=== PATIENT | male | born 1950 | race Asian ===

== ENCOUNTER 2018-10-05 22:43 | Inpatient (IN) | payer BC ==
[~2018-10-05] VITALS: Ht 160 cm; Wt 45.8 kg
[2018-10-05 22:55] VITALS: BP 122/74
--- NOTE | 2018-10-05 22:59 | NUR ---
RT NOTE RCVD A CALL FROM ER FOR DISLODGED TRACH. PT RCVD FROM FIRE DEPARTMENT VIA AMBU BAG. UPON ARRIVAL RT ASSESSMENT TRACH TUBE IN PLACE. DR SPANGLER AWARE AND BEDSIDE. PT PLACED ON MECHANICAL VENT SETTINGS NOTED FROM FIRE DEPARTMENT. SX'D FOR THICK SMALL AMOUNT OF BLOOD TINGED SECRETIONS. PT TOLERATING VENT SETTINGS WELL. ALARMS ARE ON AND AUDIBLE. VENT PLUGGED INTO RED OUTLET. AMBU BAG BEDSIDE. WILL CONTINUE TO MONITOR. Addendum: 10/05/18 at 2318 by ANDERSON CHUNG RT PT HAS BILATERAL CHEST RISE AND AUSCULTATE BILATERAL CLEAR BREATH SOUNDS.
--- NOTE | 2018-10-05 23:01 | NUR ---
[id number] FROM FAC FOR POSSIBLE TRACH DISLODGEMENT, LOW O2 SAT. BVM PER EMS. PT HAD DIALYSIS TODAY. RT AT BEDSIDE. PT HAS BILATERAL PITTING EDEMA ON FOREARMS. ALERT AND ABLE TO RESPOND WITH HEAD SHAKE/NOD GESTURES. APPEARS TO BE IN DISCOMFORT. ON MONITOR AND READY FOR EVAL.
--- NOTE | 2018-10-05 23:08 | NUR ---
[facility]: [phone]
[2018-10-05 23:09] LABS: BASOPHILS # (AUTO) 0.1 /CMM (0.0-0.2); BASOPHILS % (AUTO) 0.4 % (0.0-2.0); EOSINOPHILS % (AUTO) 0.1 % (0.0-6.0); HEMATOCRIT 37 % (39-51); HEMOGLOBIN 11.7 g/dL (13.5-17.5); LYMPHOCYTES # (AUTO) 0.3 /CMM (0.8-4.8); LYMPHOCYTES % (AUTO) 2.2 % (20.0-44.0); MEAN CORPUSCULAR HGB CONC 32 g/dl (31.0-36.0); MEAN CORPUSCULAR VOLUME 97 fL (80-96); MONOCYTES # (AUTO) 1.5 /CMM (0.1-1.30); NEUTROPHILS # (AUTO) 12.8 /CMM (1.8-8.9); NEUTROPHILS % (AUTO) 87.3 % (43.0-81.0); PLATELET COUNT (AUTO) 209 /CMM (150-450); RED BLOOD CELL COUNT(AUTO) 3.79 MIL/uL (4.5-6.0); WHITE BLOOD COUNT (AUTO) 14.6 K/uL (4.3-11.0)
[2018-10-05 23:14] LABS: CALCIUM, SERUM 8.2 mg/dL (8.5-10.1); CREATININE 0.6 mg/dL (0.6-1.3); POTASSIUM 4.1 mmol/L (3.5-5.1)
[2018-10-06] VITALS (7 sets, daily range): BP systolic 99–161; BP diastolic 54–97
--- NOTE | 2018-10-06 00:51 | NUR ---
RT NOTE LATE ENTRY. @ 7680 ABG RESULTS RELAYED TO MD SPANGLER. ABG RESULTS PLACED IN PT CHART. RAPID COMM NOT FUNCTIONING PROPERLY, UNABLE TO TRANSFER ABG RESULTS TO [email or web address].
[2018-10-06] MEDS ORDERED: IV NS 0.9% 1,000 ML BAG IV ONE (01:00)
[2018-10-06] MEDS ORDERED: MEROPENEM 500 MG in IV NS 0.9% 50 ML IV ONE (01:00)
[2018-10-06] MEDS ORDERED: VANCOMYCIN 1 GM in IV D5W 250 ML IV ONE (01:00)
[2018-10-06] MEDS ORDERED: MEROPENEM 500 MG VIAL IV ONE (01:21)
--- NOTE | 2018-10-06 01:22 | NUR ---
URINE COLLECTED AND SENT TO LAB
[2018-10-06] MEDS ORDERED: VANCOMYCIN 1 GM VIAL ONE (01:24)
[2018-10-06 01:25] LABS: APPEARANCE,URINE Clear (CLEAR); BILIRUBIN,URINE Negative (NEGATIVE); BLOOD, URINE Small Ery/uL (NEGATIVE); COLOR,URINE Yellow (YELLOW); KETONES,URINE Negative (NEGATIVE); LEUKOCYTE ESTERASE ,URINE Negative (NEGATIVE); NITRITE, URINE Negative (NEGATIVE); PROTEIN,URINE 30 mg/dl (NEGATIVE); UGLUCOSE Negative (NEGATIVE); UROBILINOGEN,URINE 0.2 EU/dL (0.2)
--- NOTE | 2018-10-06 01:49 | NUR ---
LACTIC 2.0. MD AWARE.
[2018-10-06] MEDS ORDERED: ASPIRIN 81 MG TAB.CHEW GT ONE (02:00)
[2018-10-06] MEDS ORDERED: LEVO50TA8 PO (02:14)
[2018-10-06] MEDS ORDERED: NYST5ORA PO (02:18)
[2018-10-06] MEDS ORDERED: VALA100026 PO (02:19)
[2018-10-06] MEDS ORDERED: POTA20TA83 PO (02:19)
[2018-10-06] MEDS ORDERED: MIDO10TA PO (02:20)
[2018-10-06] MEDS ORDERED: ESOM40CA PO (02:20)
[2018-10-06] MEDS ORDERED: BISA-79 PO (02:21)
[2018-10-06] MEDS ORDERED: TYL2T PO (02:21)
[2018-10-06] MEDS ORDERED: HYDR-4354 PO (02:22)
[2018-10-06 02:23] LABS: BACTERIA,URINE Few /HPF (None Seen); SQUAMOUS EPITHELIAL CELL,UR Few /HPF (None Seen); WBC,URINE 0-2 /HPF (0-3)
[2018-10-06] MEDS ORDERED: DIPH1TAB PO (02:23)
[2018-10-06] MEDS ORDERED: MAG HYDROX/AL HYDROX/SIMETH 30 ML UDC PO PRN (02:30)
[2018-10-06] MEDS ORDERED: Z GUARD REMEDY 2 OZ OINT TP PRN (02:30)
[2018-10-06] MEDS ORDERED: MAGNESIUM HYDROXIDE 30 ML UDC PO PRN (02:30)
[2018-10-06] MEDS ORDERED: HYDROCODONE/APAP 5/325MG 1 EACH TABLET PO PRN (02:30)
[2018-10-06] MEDS: IV NS 0.9% 1,000 ML IV SCH ×2 (02:30→12:03)
[2018-10-06] MEDS ORDERED: ONDANSETRON HCL/PF 4 MG/2 ML VIAL IVP PRN (02:30)
[2018-10-06] MEDS ORDERED: ACETAMINOPHEN 325 MG TABLET PO PRN (02:30)
[2018-10-06] MEDS ORDERED: ZOLPIDEM TARTRATE 5 MG TABLET PO PRN (02:30)
--- NOTE | 2018-10-06 02:52 | NUR ---
PER NURSE SUP PT GOING TO 116-2
--- NOTE | 2018-10-06 03:04 | NUR ---
REPORT GIVEN TO MIGUEL CORDOBA.
--- NOTE | 2018-10-06 03:14 | NUR ---
REGAL TO CALL BACK RE: ADMISSION.
--- NOTE | 2018-10-06 03:14 | NUR ---
[facility].
--- NOTE | 2018-10-06 03:55 | NUR ---
COMFORT RN NOTES RECEIVED PTS FROM ER WITH ADMITTING DX OF PNA , PTS IS AWAKE NONVERBAL ON VENTILATOR DEPENDENT AC SETTINGS AC8 TV 400 FIO2 40% AND PEP OF 5 , ON TELE SR WITH ELEVATED T WAVE PER TALENT ACQUISITION SOURCER V/S STABLE AFEBRILE ,NO SOB NO DISTRESS NOTED TRACH OF CHRISTINE NEWLY TRACH SUTURE STILL NOTED , PTS WITH LEFT AC G18 INTACT AND PATENT , ALSO NOTED WITH SACRAL WOUND NOTED.ALL,NEEDS ATTENDED TOO CALL LIGHT WITHIN REACH KEPY PTS CLEAN DRY AND COMFORTABLE ,
[2018-10-06] MEDS ORDERED: CEFEPIME 1 GM in IV NS 0.9% 50 ML IV SCH (04:00)
[2018-10-06 05:09] LABS: BILIRUBIN,DIRECT 0.3 mg/dL (0.0-0.2); BILIRUBIN,TOTAL 0.7 mg/dL (0.2-1.0)
--- NOTE | 2018-10-06 05:17 | NUR ---
RT NOTE LATE ENTRY. @ 0400 CONTINUOS PULSE OX PLACED BEDSIDE.
[2018-10-06] MEDS ORDERED: ONDA4TAB5 PO (08:00)
[2018-10-06] MEDS ORDERED: LACT10SO PO (08:00)
[2018-10-06] MEDS ORDERED: ZOLP5TAB2 PO (08:00)
--- NOTE | 2018-10-06 09:06 | NUR ---
WOUND CARE CONSULT: PT PRESENTS WITH MULTIPLE WOUNDS, PRESENT ON ADMISSION INCLUDING TRACH WITH SUTURES, RT UPPER BACK INTACT DEEP TISSUE INJURY, SACRAL UNSTAGEABLE NECROTIC WOUND, RT GROIN SURGICAL SITE WITH WEEPING SEROUS DRAINAGE, RT LATERAL LOWER LEG INTACT DEEP TISSUE INJURY, AND RT KNEE OPEN ABRASION. RECOMMEND SURGICAL CONSULT. RECOMMENDATIONS MADE FOR SKIN PROTECTION. DISCUSSED WITH NURSING STAFF. PT INCONTINENT OF LOOSE STOOL. DR WALL NOTIFIED OF SURGICAL CONSULT REQUEST. DEFER TO SURGICAL TEAM FOR WOUND TREATMENT PLAN. WILL SEE PRN. DAVIS IN AGREEMENT WITH PLAN OF CARE. PT ON LOW AIRLOSS BED (ISOFLEX). Addendum: 10/06/18 at 0910 by TIGIST SHI WNDNU Amended: Links added.
[2018-10-06] MEDS ORDERED: CEFEPIME 2 GM in IV D5W 100 ML IV SCH (10:00)
[2018-10-06] MEDS ORDERED: FEE PK DOSING 1 MIN EA MC ONE (10:13)
[2018-10-06] MEDS ORDERED: VANCOMYCIN 500 MG in IV D5W 100 ML IV PRN (10:30)
[2018-10-06] MEDS: CEFEPIME 1 GM in IV D5W 50 ML IV SCH (11:36)
[2018-10-06] MEDS ORDERED: VANCOMYCIN 0.75 GM in IV D5W 250 ML IV SCH (14:00)
[2018-10-06] MEDS: IPRATROPIUM NEB FS 0.5 MG/2.5 ML AMPUL.NEB NEB SCH ×2 (14:27→19:35)
[2018-10-06] MEDS: ALBUTEROL HALF STRENGTH 1.25 MG/3 ML VIAL.NEB NEB SCH ×2 (14:27→19:35)
[2018-10-06] MEDS: ASPIRIN 81 MG TAB.CHEW GT SCH (14:49)
[2018-10-06] MEDS ORDERED: NEOMY SULF/BACITRAC ZN/POLY 15 GM TUBE TP PRN (15:30)
--- NOTE | 2018-10-06 19:11 | NUR ---
Handoff to BERYL Middleton. Zen Van RN
--- NOTE | 2018-10-06 19:30 | NUR ---
NEWSSTAND VENDOR NOTE: RECEIVED PT ON BED AWAKE BUT NON VERBAL. NO ACUTE DISTRESS NOTED. AT BEDSIDE. NO FACIAL GRIMACING OR ANY SIGNS OF PAIN NOTED. ON [facility] VENT, SETTINGS ORDERED. SATURATING WELL. SUCTIONED NEEDED. ON TELE MONITOR SINUS TACHY HR 107BPM. GT INTACT, PATENT AND IN PLACED. IV ON LEFT ANTECUBITAL #18 INTACT, FLUSHING WELL. NO SIGNS/SYMPTOMS OF INFILTRATION NOTED. KEPT CLEAN, DRY AND COMFORTABLE. SAFETY AND FALL PRECAUTIONS OBSERVED AND MAINTAINED. WILL CONTINUE TO MONITOR PT.
[2018-10-06] MEDS: NEPRO 1,000 ML BOTTLE GT PRN (20:55)
[2018-10-07] VITALS: BP 142/68
[2018-10-07] MEDS: IPRATROPIUM NEB FS 0.5 MG/2.5 ML AMPUL.NEB NEB SCH ×4 (02:03→20:16)
[2018-10-07] MEDS: ALBUTEROL HALF STRENGTH 1.25 MG/3 ML VIAL.NEB NEB SCH ×4 (02:03→20:16)
[2018-10-07 04:00] VITALS: BP 133/78
--- NOTE | 2018-10-07 06:36 | NUR ---
LIFE SCIENTISTS NOTE: NO CHANGES NOTED THROUGHOUT THE SHIFT. NO APPARENT DISTRESS NOTED. ON MECH VENT, SETTINGS ORDERED. ON TELE MONITOR SINUS RHYTHM HR 99 BPM. GT INTACT AND PATENT. NO RESIDUAL NOTED. STARTED GTF NEPRO AT 20ML/HR ORDERED, ABLE TO TOLERATE FEEDING WELL. KEPT HEAD OF BED ELEVATED. KEPT CLEAN, DRY AND COMFORTABLE. SAFETY AND FALL PRECAUTIONS OBSERVED AND MAINTAINED. WILL ENDORSE TO DAY SHIFT RN FOR CONTINUITY OF CARE.
--- NOTE | 2018-10-07 07:15 | NUR ---
BINDER LOCKSTITCH OPENING PATIENT IS CURRENTLY RECEIVING HD WITH BERYL LUNA. NO ACUTE DISTRESS OR SOB NOTED. NON VERBAL, TRACH DEPENDANT. TELE ATTACHED, SINUS TACHY HR 105. PULSE OX ATTACHED AND ALARM AUDIBLE. EXTREMITIES COLD TO TOUCH. CAP REFILL <3 SEC. NEPRO RUNNING VIA GT @ 15mL/HR. L AC IV SITE C/D/I, 18G. LCW HD CATH DRESSING C/D/I. BED LOCKED, LOW, SIDE RAILS UPX2, CALL LIGHT WITHIN REACH. WILL CONTINUE TO MONITOR.
[2018-10-07 08:00] VITALS: BP 130/86
--- NOTE | 2018-10-07 09:00 | NUR ---
PER CHERYL HOME STAGING SPECIALIST, NOTHING REMOVED VIA HD, JUST CLEANED. A SPIRATED GT, NO RESIDUAL NOTED. PEG TUBE SITE MILDLY SATURATED WITH BLOOD, SITE OF REMOVED RIGHT HD FEMORAL CATH LEAKING YELLOW DRAINAGE, SECRETIONS NOTED FROM TRACH SITE. ALL SITES CLEANED AND DRESSINGS CHANGED, IN ADDITION TO WOUND CARE.
[2018-10-07] MEDS: ASPIRIN 81 MG TAB.CHEW GT SCH (09:05)
[2018-10-07 09:43] LABS: BASOPHILS % (AUTO) 0.3 % (0.0-2.0); EOSINOPHILS % (AUTO) 0.2 % (0.0-6.0); HEMATOCRIT 36 % (39-51); HEMOGLOBIN 11.5 g/dL (13.5-17.5); LYMPHOCYTES # (AUTO) 0.5 /CMM (0.8-4.8); LYMPHOCYTES % (AUTO) 3.2 % (20.0-44.0); MEAN CORPUSCULAR HGB CONC 32 g/dl (31.0-36.0); MEAN CORPUSCULAR VOLUME 96 fL (80-96); MONOCYTES # (AUTO) 1.8 /CMM (0.1-1.30); MONOCYTES % (AUTO) 10.9 % (2.0-12.0); NEUTROPHILS % (AUTO) 85.4 % (43.0-81.0); PLATELET COUNT (AUTO) 225 /CMM (150-450); RED BLOOD CELL COUNT(AUTO) 3.75 MIL/uL (4.5-6.0); WHITE BLOOD COUNT (AUTO) 16.4 K/uL (4.3-11.0)
[2018-10-07] MEDS ORDERED: VANCOMYCIN 1 GM in IV D5W 250ml IV ONE (10:00)
[2018-10-07 10:02] LABS: CALCIUM, SERUM 8.5 mg/dL (8.5-10.1); CREATININE 0.5 mg/dL (0.6-1.3); MAGNESIUM 1.6 mg/dL (1.8-2.4); PHOSPHORUS 3.2 mg/dL (2.5-4.9)
[2018-10-07] MEDS: CEFEPIME 1 GM in IV D5W 50 ML IV SCH (11:42)
[2018-10-07 12:00] VITALS: BP 120/40
[2018-10-07] MEDS ORDERED: BISACODYL (5 MG) 5 MG TABLET.DR PO PRN (13:00)
[2018-10-07] MEDS ORDERED: DIPHENOXYLATE HCL/ATROP SULF 1 UDTAB TABLET GT PRN (13:00)
[2018-10-07] MEDS ORDERED: ZOLPIDEM TARTRATE 5 MG TABLET PO PRN (13:00)
[2018-10-07] MEDS ORDERED: ACETAMINOPHEN 325 MG TABLET PO PRN (13:00)
[2018-10-07] MEDS ORDERED: NYSTATIN (PYXIS) 500,000 UNIT/5 ML ORAL.SUSP PO PRN (13:00)
[2018-10-07] MEDS: LEVOTHYROXINE SODIUM 50 MCG TABLET PO SCH (13:28)
[2018-10-07] MEDS: MIDODRINE HCL (5MG) 5 MG TABLET PO SCH (13:28)
[2018-10-07 16:00] VITALS: BP 149/99
[2018-10-07] MEDS: PIPERACILLIN /TAZOBACTAM 3.375 G in IV D5W 100 ML IV SCH ×2 (16:30→23:55)
[2018-10-07] MEDS: LACTOBACILLUS RHAMNOSUS GG 1 EACH CAP.SPRINK PO SCH (16:33)
[2018-10-07] MEDS: LACTULOSE 10 G/15 ML UDC (PYXIS) GT SCH (16:33)
--- NOTE | 2018-10-07 16:33 | NUR ---
RT RECEIVED PT ON MECHANICAL VENT WITH VENT SETTINGS ORDERED. TRACH TUBE IN PLACE, PATENT, AND SECURED WITH TRACH TIE. VENT ALARMS ON AND AUDIBLE. VENT PLUGGED IN TO RED OUTLET. AMBU BAG AND BACK UP TRACH AT BEDSIDE. NO SIGNS OF ANY DISTRESS. Addendum: 10/07/18 at 1635 by RANJANA VILLEGAS RT Amended: Links added.
--- NOTE | 2018-10-07 18:00 | NUR ---
HAND BULLDOZER CLOSING NOTE NO SIGNIFICANT CHANGES THROUGHOUT SHIFT. PATIENT IN NO ACUTE DISTRESS. MD ALVES AWARE OF SECRETIONS. TURNED Q2. REPORT GIVEN TO NOC RN FOR JANICE
--- NOTE | 2018-10-07 19:30 | NUR ---
RN INITIAL NOTES: RECEIVED REPORT FROM DAY RN JERI. PT MECH VENT TRACHE DEPENDENT, WITH THE FF SETTING AC 8, TV 400, FIO2 40%, PEEP 5, SHILEY #8, AMBU BAG PRESENT AT BED SIDE, ALL CLINICAL ALARMS CHECKED, AUDIBLE. ON CONTINUOUS PULSE OXIMETRY, SPO2 100%. PT AWAKE, NON VERBAL, NO FACIAL GRIMACE NOTED, APPEARS CALM AND COMFORTABLE. NOTED PT'S TRACHE WITH DRIED BLOOD, PER DAY RN AWARE. ALSO NOTED SOME BLOOD AND FLUID COMING FROM GTUBE SITE, NEW DRESSING APPLIED, MD AWARE ALSO PER DAY RN REPORT. RIGHT GROIN OPEN WOUND ALSO NOTED TO BE LEAKING WITH YELLOWISH COLORED FLUID, MD AWARE, WILL CHANGE DRESSING. ON TELE SINUS TACH-SINUS RHYTHM HR 95. IV ACCESS PATENT AND FLUSHING WELL, ON HL. BLE AND BUE OFFLOADED. PT RECEIVING NEPHRO 1.8 AT 25ML/HR, GOAL RATE IS 45ML/HR PER DELINQUENT NOTICE MACHINE OPERATOR NOTE. 5ML RESIDUAL OBTAINED. ABDOMEN SOFT TO TOUCH WITH ACTIVE BOWEL SOUND HEARD UPON AUSCULTATION. S/P HD TODAY BUT ONLY CLEANING, NO OUTPUT REMOVED PER DAY RN REPORT. LEFT CW HD CATH IN PLACED, DRESSING NOTED TO BE C/D/I. SAFETY PRECAUTIONS FOR FALL INITIATED, CLL LIGHT IN REACH, WILL CONTINUE MONITORING PT.
[2018-10-07 20:00] VITALS: BP 146/69
[2018-10-07] MEDS: NEPRO 1,000 ML BOTTLE GT PRN (23:56)
[2018-10-08] VITALS: BP 123/73
[2018-10-08] MEDS: NEPRO 1,000 ML BOTTLE GT PRN ×2 (00:20→00:27)
--- NOTE | 2018-10-08 00:30 | NUR ---
RN NOTES: RD RECOMMENDATION OKAY TO PROCEED NEPHRO 1.8 GOAL RATE IS 45ML/HR. ADMINISTERED NEW BAG OF FEEDING AT THIS TIME.
[2018-10-08] MEDS: IPRATROPIUM NEB FS 0.5 MG/2.5 ML AMPUL.NEB NEB SCH ×4 (02:24→19:45)
[2018-10-08] MEDS: ALBUTEROL HALF STRENGTH 1.25 MG/3 ML VIAL.NEB NEB SCH ×4 (02:24→19:45)
[2018-10-08 04:00] VITALS: BP 120/76
--- NOTE | 2018-10-08 04:00 | NUR ---
AM CARE AND WOUND CARE TX: ASSISTED DIRECTOR OF PROPERTY MANAGEMENT IN PERFORMING BED BATH TO PT, ALSO WOUND CARE DONE ORDERED, NEW SUCTION SET UP SECURED, NOTED LARGE AMOUNT OF LEAK, FLUIDS COMING OUT OF GTUBE SITE, BUT UPON CHECKING RESIDUAL ONLY 5ML OBTAINED,. MD LUG BREAKER AND WIRE PULLER MADE AWARE
[2018-10-08] MEDS ORDERED: VANCOMYCIN 500 MG in IV D5W 100 ML IV PRN (06:00)
--- NOTE | 2018-10-08 06:51 | NUR ---
RN CLOSING NOTES: PT IN BED, AWAKE, NON VERBAL, TOLERATED MECH VENT SETTING WELL. AMBU BAG REMAINS AT BED SIDE. ALL CLINICAL ALARMS CHECKED AND REMAINS AUDIBLE. IV ACCESS REMAINS PATENT AND FLUSHING WELL,ON HL.REMAINS SINUS RHYTHM TO SINUS TACH HR 101. GTUBE FEEDING NOW AT GOAL RATE NEPHRO 1.8 AT 45ML/HR, 5ML RESIDUAL NOTED. GTUBE SITE FREE FROM BLEEDING. RIGHT GROIN AREA DRESSING REMAINS C/D/I. NEW DRESSING PLACED. BUE AND BLE KEPT OFFLOADED. NEW SUCTION SET UP SECURED. CONTINUOUS PULSE OX REMAINS IN PLACED. VS REMAINS STABLE, NEEDS ATTENDED. AWAITING PLACEMENT, CM ON BOARD. SAFETY PRECAUTIONS FOR FALL REMAINS ENGAGED, CALL LIGHT IN REACH, WILL ENDORSE TO DAY RN FOR CONTINUITY OF CARE.
--- NOTE | 2018-10-08 07:30 | NUR ---
RN NOTES: RECEIVED PATIENT IN BED, AWAKE, A/O X2, ABLE TO ANSWER YES/NO QUESTION. TRACH TO [facility] V[facility], TOLERATING CURRENT VENT SETTING. NO S/S OF RESPIRATORY DISTRESS NOTED, SPO2 AT 100%. NO INDICATION OF PAIN NOTED AT THIS TIME. APPEARS CALM AND COMFORTABLE. SINUS RHYTHM ON THE MONITOR WITH HR ON THE 90'S. LEFT CW HD CATH IN PLACED, DRESSING NOTED TO BE C/D/I IV ACCESS ON THE L AC G [address] AND INTACT, PATENT ON FLUSHING,HL. GT IN PLACE AND PATENT, PLACEMENT CHECKED THROUGH AUSCULTATION AND ASPIRATING GASTRIC RESIDUAL: NO GASTRIC RESIDUAL TAKEN AT THIS TIME. GTF NEPHRO 1.8 AT 45ML/HR. HOB ELEVATED FOR ASPIRATION PRECAUTION. SAFETY PRECAUTIONS OBSERVED AND MAINTAINED. BED AND LOW AND LOCKED POSITIONED. SRX2 RAISED. CALL LIGHT PLACE WITHIN REACH. WILL CONTINUE TO ANTICIPATE NEEDS AND MONITOR ACCORDINGLY
[2018-10-08 08:00] VITALS: BP 111/73
[2018-10-08] MEDS ORDERED: POTASSIUM CHLORIDE 20 MEQ TAB.PRT.SR PO SCH (09:00)
[2018-10-08] MEDS: PIPERACILLIN /TAZOBACTAM 3.375 G in IV D5W 100 ML IV SCH ×2 (09:21→17:39)
[2018-10-08] MEDS: LACTULOSE 10 G/15 ML UDC (PYXIS) GT SCH ×2 (09:21→17:39)
[2018-10-08] MEDS: LACTOBACILLUS RHAMNOSUS GG 1 EACH CAP.SPRINK PO SCH ×2 (09:22→17:39)
[2018-10-08] MEDS: LEVOTHYROXINE SODIUM 50 MCG TABLET PO SCH (09:22)
[2018-10-08] MEDS: MIDODRINE HCL (5MG) 5 MG TABLET PO SCH (09:24)
[2018-10-08] MEDS: ASPIRIN 81 MG TAB.CHEW GT SCH (09:25)
[2018-10-08] MEDS: VANCOMYCIN 0.75 GM in IV D5W 250 ML IV SCH ×2 (11:08→23:28)
[2018-10-08 12:00] VITALS: BP 119/59
[2018-10-08 16:00] VITALS: BP 119/76
--- NOTE | 2018-10-08 19:00 | NUR ---
RN NOTES REITERATED TO CYNDI RIVERA DNP ON PATIENT'S MAGNESIUM LEVEL AT 1.6. OBTAINED ORDER FOR MAGNESIUM 1 GRAM. ORDER NOTED AND CARRIED OUT
--- NOTE | 2018-10-08 19:20 | NUR ---
SOFTWARE VALIDATION TECHNICIAN NOTE PATIENT RESTING WITH HOB ELEVATED, AT BEDSIDE, PT NON VERBAL ABLE TO NOD YES OR NO ANSWERS, TRACH TO VENT ON SETTING ORDERED, ON TELE SR, NO S/SX OF CARDIAC OR RESPIRATORY DISTRESS, LAC #18G PATENT FLUSHING WELL, LCW HD CATHETER, G TUBE FEEDING WITH NEPHRO AT 45 ML/HR, TOLERATING WELL, SKIN KEPT CLEAN AND DRY, SAFETY MAINTAINED AT ALL TIMES, BED IN LOW LOCKED POSITION, CALL LIGHT WITHIN REACH, WILL CONTINUE TO MONITOR FOR ANY CHANGES IN CONDITION.
--- NOTE | 2018-10-08 19:44 | NUR ---
RN NOTES ENDORSED PATIENT FOR CONTINUITY OF CARE. NOT ON ANY FORM DISTRESS. NO ACUTE CHANGES WITHIN THE SHIFT. ALL NURSING NEEDS ATTENDED AND MET. SAFETY MEASURES IN PLACE AT ALL TIMES. CALL LIGHT PLACED WITHIN REACH.
[2018-10-08 20:00] VITALS: BP 128/74
[2018-10-08] MEDS ORDERED: Magnesium 1GM/D5W 100ML PREMIX 100 ML IV ONE (21:00)
[2018-10-08] MEDS ORDERED: Magnesium 1GM/D5W 100ML PREMIX PIGGYBACK IV ONE (21:00)
[2018-10-09] VITALS (7 sets, daily range): BP systolic 114–126; BP diastolic 61–81
[2018-10-09] MEDS: PIPERACILLIN /TAZOBACTAM 3.375 G in IV D5W 100 ML IV SCH ×4 (00:45→23:19)
[2018-10-09] MEDS: IPRATROPIUM NEB FS 0.5 MG/2.5 ML AMPUL.NEB NEB SCH ×4 (02:29→19:51)
[2018-10-09] MEDS: ALBUTEROL HALF STRENGTH 1.25 MG/3 ML VIAL.NEB NEB SCH ×4 (02:29→19:51)
[2018-10-09] MEDS: NEPRO 1,000 ML BOTTLE GT PRN (05:41)
--- NOTE | 2018-10-09 08:00 | NUR ---
TELE1/RN AM SHIFT INITIAL NOTES RECEIVED PT AWAKE IN BED, PT ALERT ABLE TO MOUTH/NODS YES OR NO, NOTED FACIAL GRIMACING SAID HE PAIN RATED ABOUT 7/10, TO BE GIVEN PRN PAIN MEDICATION. ON VENT WITH RATES SET PRESCRIBED, LUNG SOUNDS DIMINISHED, TRACHED SITE WITH SUTURED INTACT AND DRY. RESPIRATIONS EVEN AND UNLABORED, SATURATING @ 100%, SUCTIONED FOR AIRWAY CLEARANCE. ON TELE WITH SINUS TACHY, HR 105. IV SITE ON TKO. GTF ON GOING @ 45CC/HR, NO GASTRIC RESIDUAL NOTED, FLUSHED, PATENT. SCHEDULED AM MEDS TO BE GIVEN. CL WITHIN REACHED AND SAFETY MAINTAINED. ON GOING MONITORING.
[2018-10-09] MEDS: MIDODRINE HCL (5MG) 5 MG TABLET PO SCH (09:16)
[2018-10-09] MEDS: LACTOBACILLUS RHAMNOSUS GG 1 EACH CAP.SPRINK PO SCH ×2 (09:16→18:08)
[2018-10-09] MEDS: ASPIRIN 81 MG TAB.CHEW GT SCH (09:16)
[2018-10-09] MEDS: LACTULOSE 10 G/15 ML UDC (PYXIS) GT SCH ×2 (09:16→18:07)
[2018-10-09] MEDS: HYDROCODONE/APAP 10/325MG 1 EA TABLET PO PRN ×2 (09:17→13:31)
[2018-10-09] MEDS: LEVOTHYROXINE SODIUM 50 MCG TABLET PO SCH (09:18)
[2018-10-09] MEDS: VANCOMYCIN 0.75 GM in IV D5W 250 ML IV SCH (11:00)
--- NOTE | 2018-10-09 11:00 | NUR ---
TELE1/RN ROUNDS - DR. POLANCO PT SEEN & EXAMINED BY DR. POLANCO. WITH VERBAL ORDER RECEIVED TO GET CONSENT OF WOUND DEBRIDEMENT OF THE SACRAL AND RIGHT UPPER BACK. ORDER NOTED AND CARRIED.
[2018-10-09 11:03] LABS: BASOPHILS # (AUTO) 0.2 /CMM (0.0-0.2); BASOPHILS % (AUTO) 1.4 % (0.0-2.0); EOSINOPHILS % (AUTO) 0.7 % (0.0-6.0); HEMATOCRIT 32 % (39-51); HEMOGLOBIN 10.3 g/dL (13.5-17.5); LYMPHOCYTES # (AUTO) 0.3 /CMM (0.8-4.8); LYMPHOCYTES % (AUTO) 1.6 % (20.0-44.0); MEAN CORPUSCULAR HGB CONC 32 g/dl (31.0-36.0); MEAN CORPUSCULAR VOLUME 95 fL (80-96); MONOCYTES # (AUTO) 1.2 /CMM (0.1-1.30); MONOCYTES % (AUTO) 7.2 % (2.0-12.0); NEUTROPHILS # (AUTO) 14.5 /CMM (1.8-8.9); NEUTROPHILS % (AUTO) 89.1 % (43.0-81.0); PLATELET COUNT (AUTO) 259 /CMM (150-450); RED BLOOD CELL COUNT(AUTO) 3.41 MIL/uL (4.5-6.0); WHITE BLOOD COUNT (AUTO) 16.3 K/uL (4.3-11.0)
[2018-10-09 11:10] LABS: CALCIUM, SERUM 7.5 mg/dL (8.5-10.1); CREATININE 0.8 mg/dL (0.6-1.3); POTASSIUM 3.2 mmol/L (3.5-5.1)
--- NOTE | 2018-10-09 12:47 | NUR ---
TELE1/ROBOTICS ENGINEER DEBRIDEMENT - CONSENT CONSENT FOR WOUND DEBRIDEMENT OBTAINED FORM PT'S . DR. POLANCO NOTIFIED. CONSENT FILLED IN PT'S CHART.
[2018-10-09] MEDS: FUROSEMIDE 40 MG TABLET GT SCH (13:25)
[2018-10-09] MEDS ORDERED: LIDOCAINE 1%-EPI 1:100,000 20 ML VIAL TP ONE (15:00)
--- NOTE | 2018-10-09 17:00 | NUR ---
TELE1/RN AFTERNOON ROUNDS PM CARE PROVIDED. PT HAVING WOUND DEBRIDEMENT, CULTURE TAKEN, NO CHANGE OF CONDITION. MONITORING.
--- NOTE | 2018-10-09 19:30 | NUR ---
TELE1/RN AM SHIFT END NOTES NO ACUTE CHANGE OF CONDITION NOTED DURING THE SHIFT, ALL NEEDS MET. PT ENDORSED TO PM NURSE TO CONTINUE CARE. CL WITHIN REACHED AND SAFETY MAINTAINED.
[2018-10-09] MEDS: HYDROGEL DRESSING 90 GM TUBE TP SCH ×2 (21:36)
[2018-10-10] VITALS: BP 118/74
[2018-10-10] MEDS ORDERED: VANCOMYCIN 0.75 GM in IV D5W 250 ML IV SCH ×2
--- NOTE | 2018-10-10 00:47 | NUR ---
corner block cutter note vanocomycin iv held due to trough level 26
[2018-10-10] MEDS: IPRATROPIUM NEB FS 0.5 MG/2.5 ML AMPUL.NEB NEB SCH ×4 (01:18→19:55)
[2018-10-10] MEDS: ALBUTEROL HALF STRENGTH 1.25 MG/3 ML VIAL.NEB NEB SCH ×4 (01:18→19:55)
[2018-10-10 04:00] VITALS: BP 124/80
[2018-10-10 08:00] VITALS: BP 104/69
--- NOTE | 2018-10-10 08:00 | NUR ---
TELE1/RN AM SHIFT INITIAL NOTES RECEIVED PT AWAKE IN BED, OPEN EYES, NO GRIMACING OR ACUTE CHANGE OF CONDITION NOTED. PT ABLE TO NOD YES OR NO, AT TIMES TRIES TO MOUTH WORDS, DENIES PAIN AT THIS TIME. ON VENTILATOR WITH RATES SET PRESCRIBED, SATURATING @ 100%, RESPIRATIONS EVEN AND NON-LABORED, SUCTIONED FOR AIRWAY CLEARANCE. TRACT SITE WITH SUTURE INTACT, NOTED WITH THICK SECRETIONS. ON TELE WITH SINUS RHYTHM, HR 92. IV SITE ON TKO, PATENT WITH NO S/S OF INFECTION. GT FEEDING ON GOING @ 45CC/HR, NO GASTRIC RESIDUAL, FLUSHED PATENT. DVT SLEEVE IN PLACED, PUMP TUNED ON. PT IS COMFORTABLE AT THIS TIME, SCHEDULED AM MEDS TO BE GIVEN. CL WITHIN REACHED AND SAFETY MAINTAINED. ON GOING MONITORING.
[2018-10-10] MEDS: ASPIRIN 81 MG TAB.CHEW GT SCH (08:46)
[2018-10-10] MEDS: FUROSEMIDE 40 MG TABLET GT SCH (08:46)
[2018-10-10] MEDS: LACTULOSE 10 G/15 ML UDC (PYXIS) GT SCH ×2 (08:46→16:37)
[2018-10-10] MEDS: LACTOBACILLUS RHAMNOSUS GG 1 EACH CAP.SPRINK PO SCH ×2 (08:46→16:37)
[2018-10-10] MEDS: LEVOTHYROXINE SODIUM 50 MCG TABLET PO SCH (08:46)
[2018-10-10] MEDS: MIDODRINE HCL (5MG) 5 MG TABLET PO SCH (08:47)
[2018-10-10] MEDS: PIPERACILLIN /TAZOBACTAM 3.375 G in IV D5W 100 ML IV SCH ×2 (08:51→16:38)
[2018-10-10 08:53] LABS: BASOPHILS # (AUTO) 0.2 /CMM (0.0-0.2); BASOPHILS % (AUTO) 1.3 % (0.0-2.0); EOSINOPHILS % (AUTO) 1.2 % (0.0-6.0); HEMATOCRIT 36 % (39-51); HEMOGLOBIN 11.3 g/dL (13.5-17.5); LYMPHOCYTES # (AUTO) 0.3 /CMM (0.8-4.8); LYMPHOCYTES % (AUTO) 1.8 % (20.0-44.0); MEAN CORPUSCULAR HGB CONC 32 g/dl (31.0-36.0); MEAN CORPUSCULAR VOLUME 95 fL (80-96); MONOCYTES # (AUTO) 1.1 /CMM (0.1-1.30); NEUTROPHILS # (AUTO) 15.8 /CMM (1.8-8.9); NEUTROPHILS % (AUTO) 89.7 % (43.0-81.0); PLATELET COUNT (AUTO) 248 /CMM (150-450); RED BLOOD CELL COUNT(AUTO) 3.73 MIL/uL (4.5-6.0); WHITE BLOOD COUNT (AUTO) 17.6 K/uL (4.3-11.0)
[2018-10-10] MEDS: NEPRO 1,000 ML BOTTLE GT PRN (08:55)
[2018-10-10 09:00] LABS: ALBUMIN 2.3 g/dL (3.4-5.0); BILIRUBIN,TOTAL 0.6 mg/dL (0.2-1.0); CALCIUM, SERUM 8.1 mg/dL (8.5-10.1); CREATININE 0.8 mg/dL (0.6-1.3); MAGNESIUM 1.7 mg/dL (1.8-2.4); PHOSPHORUS 3.8 mg/dL (2.5-4.9); POTASSIUM 3.5 mmol/L (3.5-5.1)
[2018-10-10] MEDS: HYDROGEL DRESSING 90 GM TUBE TP SCH ×4 (09:05→21:41)
[2018-10-10 12:00] VITALS: BP 148/81
[2018-10-10 16:00] VITALS: BP 143/73
[2018-10-10] MEDS: DAKINS QUARTER STRENGTH (0.125%) 480 ML BOTTLE TOP SCH (17:30)
--- NOTE | 2018-10-10 19:00 | NUR ---
TELE1/RN AM SHIFT END NOTES ALL NEEDS MET. NO ACUTE CHANGE OF CONDITION NOTED DURING SHIFT. PT ENDORSED TO PM NURSE TO CONTINUE CARE. CL WITHIN REACHED AND SAFETY MAINTAINED.
[2018-10-10 20:00] VITALS: BP 146/85
[2018-10-11] VITALS: BP 148/79
[2018-10-11] MEDS: PIPERACILLIN /TAZOBACTAM 3.375 G in IV D5W 100 ML IV SCH ×3 (00:08→17:08)
[2018-10-11] MEDS: IPRATROPIUM NEB FS 0.5 MG/2.5 ML AMPUL.NEB NEB SCH ×3 (02:13→14:19)
[2018-10-11] MEDS: ALBUTEROL HALF STRENGTH 1.25 MG/3 ML VIAL.NEB NEB SCH ×3 (02:13→14:19)
[2018-10-11 04:00] VITALS: BP 111/72
[2018-10-11] MEDS: HYDROCODONE/APAP 10/325MG 1 EA TABLET PO PRN ×2 (04:50→08:13)
--- NOTE | 2018-10-11 06:29 | NUR ---
rn notes received patient in bed, awake with family at bedside. non verbal. able to communicate needs via hand gesture and facial expression. no distress noted. breathing even and unlabored. vent setting well tolerated. hob elevated. suctioned large amount of semi loose to thick whitish yellowish secretion. noted with facial grimace and increase heart rate. Bliss 10/325 give, with very little relief. kept clean and dry. will endorse to am shift for continuity of care.
[2018-10-11 08:00] VITALS: BP 114/83
--- NOTE | 2018-10-11 08:00 | NUR ---
PIPELINE SUPERINTENDENT OPENING NOTE PATIENT RESTING WITH HOB ELEVATED, PT NON VERBAL ABLE TO NOD YES OR NO ANSWERS, TRACH TO VENT ON SETTING ORDERED, ON TELE SR, NO S/SX OF CARDIAC OR RESPIRATORY DISTRESS, LAC #18G AND LUZ MIDLINE BOTH PATENT FLUSHING WELL, LCW HD CATHETER, G TUBE FEEDING WITH NEPHRO AT 45 ML/HR, TOLERATING WELL, SKIN KEPT CLEAN AND DRY, SAFETY MAINTAINED AT ALL TIMES, BED IN LOW LOCKED POSITION, CALL LIGHT WITHIN REACH, WILL CONTINUE TO MONITOR FOR ANY CHANGES IN CONDITION.
[2018-10-11 08:49] LABS: ALBUMIN 2.2 g/dL (3.4-5.0); BILIRUBIN,TOTAL 0.8 mg/dL (0.2-1.0); CALCIUM, SERUM 8.2 mg/dL (8.5-10.1); MAGNESIUM 2.1 mg/dL (1.8-2.4); PHOSPHORUS 3.8 mg/dL (2.5-4.9); POTASSIUM 2.9 mmol/L (3.5-5.1); TOTAL PROTEIN, SERUM 4.8 g/dL (6.4-8.2)
[2018-10-11] MEDS: LEVOTHYROXINE SODIUM 50 MCG TABLET PO SCH (09:11)
[2018-10-11] MEDS: ASPIRIN 81 MG TAB.CHEW GT SCH (09:11)
[2018-10-11] MEDS: FUROSEMIDE 40 MG TABLET GT SCH (09:11)
[2018-10-11] MEDS: LACTOBACILLUS RHAMNOSUS GG 1 EACH CAP.SPRINK PO SCH ×2 (09:11→17:10)
[2018-10-11] MEDS: LACTULOSE 10 G/15 ML UDC (PYXIS) GT SCH ×2 (09:11→17:08)
[2018-10-11] MEDS: MIDODRINE HCL (5MG) 5 MG TABLET PO SCH (09:12)
[2018-10-11 09:13] LABS: BASOPHILS % (AUTO) 0.1 % (0.0-2.0); EOSINOPHILS % (AUTO) 0.4 % (0.0-6.0); HEMATOCRIT 38 % (39-51); HEMOGLOBIN 11.9 g/dL (13.5-17.5); LYMPHOCYTES # (AUTO) 0.3 /CMM (0.8-4.8); MEAN CORPUSCULAR HGB CONC 31 g/dl (31.0-36.0); MEAN CORPUSCULAR VOLUME 96 fL (80-96); MONOCYTES # (AUTO) 0.3 /CMM (0.1-1.30); MONOCYTES % (AUTO) 1.8 % (2.0-12.0); NEUTROPHILS # (AUTO) 14.4 /CMM (1.8-8.9); NEUTROPHILS % (AUTO) 95.7 % (43.0-81.0); PLATELET COUNT (AUTO) 274 /CMM (150-450); RED BLOOD CELL COUNT(AUTO) 3.96 MIL/uL (4.5-6.0)
[2018-10-11] MEDS: VANCOMYCIN 0.75 GM in IV D5W 250 ML IV SCH ×2 (09:14→09:45)
[2018-10-11] MEDS: HYDROGEL DRESSING 90 GM TUBE TP SCH ×2 (09:46→09:47)
[2018-10-11] MEDS: DAKINS QUARTER STRENGTH (0.125%) 480 ML BOTTLE TOP SCH (09:46)
[2018-10-11 10:38] LABS: BAND % (MANUAL) 14 % (0.0-5.0); LYMPHOCYTES % (MANUAL) 3 % (16-48); MONOCYTES % (MANUAL) 5 % (0-11.0); NEUTROPHILS % (MANUAL) 78 (42-76)
[2018-10-11 12:00] VITALS: BP_SYST 68; BP_SYST 95; BP_DIAS 31; BP_DIAS 53
[2018-10-11] MEDS: POTASSIUM CHLORIDE 20 MEQ POWDER PACKET GT SCH ×3 (12:11→14:00)
[2018-10-11] MEDS ORDERED: HYDROCORTISONE SOD SUCCINATE 100 MG/2 ML VIAL IV ONE (13:00)
--- NOTE | 2018-10-11 13:00 | NUR ---
MAINTENANCE MECHANIC HELPER NOTE PATIENT BLOOD SUGAR 38. RECHECKED WITH SAME RESULT. MD NOTIFIED. 12 OZ ORANGE JUICE GIVEN IMMEDIATELY VIA G-TUBE. SUGAR ELEVATED SLIGHTLY BUT STILL BELOW 50. D10 NS GIVEN PER NEW GUIDELINES STATED TODAY. STAT BLOOOD SUGAR TAKEN. BLOOD SUGAR RETURNED TO EXPECTED PARAMETERS..103. PATIENT BLOOD PRESSURE LOW DURING SHIFT. MD NOTIFIED. MD ORDERED 500 ML NS. BLOOD PRESSURE RETURNED TO EXPECTED PARAMETERS AFTER NS INFUSION.
--- NOTE | 2018-10-11 14:00 | NUR ---
INDUSTRIAL RELATIONS REPRESENTATIVE NOTE 250ML D10 W USED PER NEW ORDERS FOR LOW BLOOD SUGAR INSTEAD ON 50 ML SYRINGE.
[2018-10-11 16:00] VITALS: BP 124/103
--- NOTE | 2018-10-11 16:00 | NUR ---
MAIL SORTER AND DELIVERY NOTE WOUND CARE COMPLETED ORDERED.
--- NOTE | 2018-10-11 16:14 | NUR ---
PER HERBERT MONTENEGRO PATIENT TO BE TRANSFERRED TO ANOTHER ACUTE [facility] ,AWARE OF LOW SBP POST BOLUS STILL OK TO SEND ,ORDERED TO MINIMIZE TURNING PATIENT PRIOR TO DISCHARGE,WILL HOLD OFF ON DISCHARGE PHOTO R/T PT. MD BUDDY AWARE.
--- NOTE | 2018-10-11 16:19 | NUR ---
MESSAGE LEFT [phone] REGARDING TRANSFER,CM MADE AWARE UNABLE TO CONTACT FAMILY BUT LEFT MESSAGE.
[2018-10-11] MEDS ORDERED: DEXTROSE 50%-WATER 50 ML DISP.SYRIN ONE (16:44)
[2018-10-11 17:14] VITALS: BP 124/103
--- NOTE | 2018-10-11 19:55 | NUR ---
GYM INSTRUCTORADJUNCT PSYCHOLOGY INSTRUCTOR NOTE PATIENT DISCHARGED PER MD VIA EMT/REPIRATORY TRANSPORT. PATIENT A/O X 2, NO SOB OR ACUTE DISTRESS NOTED. NO PAIN REPORTED. LUZ MIDLINE LEFT INTACT. L ARM IV REMOVED. G-TUBE CLEAN AND CLAMPED. PATIENT CLEAN AND DRY. PATIENT BEDSIDE AND ACCOMPANIED PATIENT WITH EMT'S. WOUND CARE COMPLETED BEFORE D/C. ALL BELONGINGS TAKEN, TELE MONITOR REMOVED. ALL DISCHARGE PAPERWORK SENT WITH EMT'S. DISCHARGE COMPLETED W/O INCIDENT.
[2018-10-11] MEDS ORDERED: VANCOMYCIN 0.75 GM in IV D5W 250 ML IV SCH (21:00)
[2018-10-11] MEDS ORDERED: MAG30ORA PO (21:35)
[2018-10-11] MEDS ORDERED: LACT1CAP72 PO (21:35)
[2018-10-11] MEDS ORDERED: ONDA4VIA23 IVP (21:35)
[2018-10-11] MEDS ORDERED: Hydrogel Dressing TP (21:35)
[2018-10-11] MEDS ORDERED: Nepro GT (21:35)
[2018-10-11] MEDS ORDERED: IPRA0.2S9 NEB (21:35)
[2018-10-11] MEDS ORDERED: NYST5ORA PO (21:35)
[2018-10-11] MEDS ORDERED: ALLA266C2 TP (21:35)
[2018-10-11] MEDS ORDERED: SODI473S8 TOP (21:35)
[2018-10-11] MEDS ORDERED: ALBU1.25 NEB (21:35)
[2018-10-11] MEDS ORDERED: FURO40TA5 GT (21:35)
[2018-10-11] MEDS ORDERED: Midodrine Hcl (5MG) PO (21:35)
[2018-10-11] MEDS ORDERED: LACT10SO6 GT (21:35)
[2018-10-11] MEDS ORDERED: NEOM15OI3 TP (21:35)
[2018-10-11] MEDS ORDERED: BISA5TAB10 PO (21:35)
[2018-10-11] MEDS ORDERED: LEVO50TA PO (21:35)
[2018-10-11] MEDS ORDERED: ACET325T53 PO (21:35)
[2018-10-11] MEDS ORDERED: ASPI-1169 GT (21:35)
--- NOTE | 2018-10-13 12:32 | NUR ---
LATE ENTRY FOR DATE 10/11/18 1653,PATIENT WITH UNSTABLE LOW BP AND BLOOD SUGAR PER MD MINIMIZED TURNING PATIENT PRIOR TO DISCHARGE R/T UNSTABLE BP AND OK TO HOLD OFF ON TAKING DISCHARGE PHOTO R/T UNSTABLE CONDITION.PATIENT AWAITS TRANSFER TO ANOTHER ACUTE FACILITY PER MD ORDER.
== END 2018-10-11 20:00 | DRG 853 ==
LOC: ER 22:43 → TELE-TD 10-06 03:38 → TELE1 10-06 12:30
PROVIDERS: ADMIT Nurse Practitioner Acute Care; ATTEND Nurse Practitioner Acute Care
PROC: 5A1955Z Respiratory Ventilation, Greater than 96 Consecutive Hours (ICD-10-PCS; principal; 2018-10-06)
PROC: 5A1D70Z Performance of Urinary Filtration, Intermittent, Less than 6 Hours Per Day (ICD-10-PCS; 2018-10-07)
PROC: 05H533Z Insertion of Infusion Device into Right Subclavian Vein, Percutaneous Approach (ICD-10-PCS; 2018-10-09)
PROC: B546ZZA Ultrasonography of Right Subclavian Vein, Guidance (ICD-10-PCS; 2018-10-09)
PROC: 0QB10ZZ Excision of Sacrum, Open Approach (ICD-10-PCS; 2018-10-10)
PROC: 0JB70ZZ Excision of Back Subcutaneous Tissue and Fascia, Open Approach (ICD-10-PCS; 2018-10-10)
DX: A41.9 Sepsis, unspecified organism (principal); E43 Unspecified severe protein-calorie malnutrition; N18.6 End stage renal disease; R53.2 Functional quadriplegia; J15.6 Pneumonia due to other Gram-negative bacteria; I21.A1 Myocardial infarction type 2; N17.0 Acute kidney failure with tubular necrosis; J90 Pleural effusion, not elsewhere classified; G93.1 Anoxic brain damage, not elsewhere classified; J96.11 Chronic respiratory failure with hypoxia; Z99.11 Dependence on respirator [ventilator] status; J98.11 Atelectasis; R64 Cachexia; E03.9 Hypothyroidism, unspecified; E86.0 Dehydration; K21.9 Gastro-esophageal reflux disease without esophagitis; J44.9 Chronic obstructive pulmonary disease, unspecified; Z99.2 Dependence on renal dialysis; Z93.0 Tracheostomy status; Z93.1 Gastrostomy status; R13.10 Dysphagia, unspecified; E11.22 Type 2 diabetes mellitus with diabetic chronic kidney disease; D53.9 Nutritional anemia, unspecified; Z79.899 Other long term (current) drug therapy; F09 Unspecified mental disorder due to known physiological condition; S31.103A Unspecified open wound of abdominal wall, right lower quadrant without penetration into peritoneal cavity, initial encounter; X58.XXXA Exposure to other specified factors, initial encounter; Y92.9 Unspecified place or not applicable; L89.110 Pressure ulcer of right upper back, unstageable; L89.020 Pressure ulcer of left elbow, unstageable; L89.150 Pressure ulcer of sacral region, unstageable; S71.111A Laceration without foreign body, right thigh, initial encounter; L98.9 Disorder of the skin and subcutaneous tissue, unspecified; B96.20 Unspecified Escherichia coli [E. coli] as the cause of diseases classified elsewhere
CPT/HCPCS: 31720; 36415; 36600; 71045-TC; 76770-TC; 80048-TC; 80053-TC; 80061-TC; 80202-TC; 81000-TC; 82040-TC; 82247-TC; 82248-TC; 82803-TC; 82947-TC; 82962-TC; 83605-TC; 83735-TC; 84100-TC; 84484-TC; 85025-TC; 87040-TC; 87070-TC; 87081-TC; 87086-TC; 87186-TC; 90935-TC; 94002-TC; 94003-TC; 94760-TC; 94762-TC; 94799-TC; 99082-TC; A4216; A4623; A6248; A6253; A6402; A6403; A7526; G0378; J0692; J1720; J2185; J2543; J3370; J3475; J3490; J7030; J7040; J7050; J7060